=== PATIENT | male | born 1960 | race Caucasian/White ===

== ENCOUNTER → 2017-02-25 | Outpatient (CLI) | payer OTHER ==
[~2017-02-25] MED LIST: AMIODARONE HCL400 MG PO; ASPIRIN LO-DOSE81 MG PO; LOPRESSOR25 MG PO; PRAVACHOL20 MG PO
--- NOTE | ~2017-02-25 | PUL ---
PATIENT'S NAME: GUSTAVO [facility] AGE: 57 Y [address] ROOM: [place] [address] LOCATION: [facility] ADMIT DATE: 02/25/2017 Pulmonary DISCHARGE DATE: FAMILY PHYSICIAN: Miguel Ángel Lovell MD ATTENDING PHYSICIAN: RANDALL CASTAÑEDA NAME OF PROCEDURE: Pulmonary Function Test DATE OF PROCEDURE: February 25, 2017 TECH: PHUONG Ramos REASON FOR EXAM: Medication usage PROCEDURES PERFORMED: Spirometry with bronchodilator assessment. Measurement of maximum voluntary ventilation. Measurement of lung volumes. Measurement of diffusion capacity. RESULTS: Spirometry showed pre bronchodilator FVC was 4.49 liters, 77% of predicted; post bronchodilator FVC was 4.48 liters, 77% of predicted. Pre bronchodilator FEV1 was 3.16 liters, 71% of predicted; post-bronchodilator FEV1 was 3.19 liters, 72% of predicted. FEV1/FVC was 70, 92% of predicted. FEF 25-75% was 1.93 liters/second, 52% of predicted. Peak flow was 8.44 liters/second, 78% of predicted. Maximum voluntary ventilation was 85 liters/minute, 52% of predicted. This spirometry data did not change significantly following inhaled bronchodilator. Lung volumes show total lung capacity was 3.87 liters, 49% of predicted. Functional residual capacity was 1.28 liters, 32% of predicted. Residual volume was -0.64 liters, -24% of predicted. DLCO not adjusted for hemoglobin is 60% of predicted. The single breath alveolar volume was 5.1 liters, and is a poor estimate of the total lung capacity. The flow volume loop pattern is restrictive. IMPRESSION: The above data and corresponding flow volume curves are most compatible with severe ventilatory restriction, with moderate gas transfer impairment. MD JACQUELINE JETT/rambo PATIENT'S NAME: GUSTAVO [facility] AGE: 57 Y [address] ROOM: [place] [address] LOCATION: [facility] ADMIT DATE: 02/25/2017 Pulmonary DISCHARGE DATE: FAMILY PHYSICIAN: Miguel Ángel Lovell MD ATTENDING PHYSICIAN: RANDALL CASTAÑEDA /[id number] dtt: 03/04/17 1730 , NICOLAS PRICE dtd: 03/01/17 1519
[2017-02-25 09:03] LABS: ALBUMIN 3.5 gm/dL (3.5-5.0); ANION GAP 11.3 (10.0-19.0); CALCIUM 8.7 mg/dL (8.5-10.5); CREATININE 1.2 mg/dL (0.6-1.3); POTASSIUM 4.3 mMol/L (3.7-5.1); TOTAL BILIRUBIN 0.6 mg/dL (0.0-1.5); TOTAL PROTEIN 8.3 g/dL (6.0-8.4)
== END | disposition disaster alternative care site (69) ==
LOC: GRTH 02-16 11:30 → GLAB 08:10
PROVIDERS: Internal Medicine Interventional Cardiology
DX: Z51.81 Encounter for therapeutic drug level monitoring (principal); Z79.899 Other long term (current) drug therapy